=== PATIENT | male | born 1985 | race Two or more races ===

== ENCOUNTER 2025-10-22 18:27 | Emergency (ER) | payer BC, OTHER ==
[~2025-10-22] VITALS: Ht 185.4 cm; Wt 169.3 kg
[2025-10-22] MEDS: diphenhydrAMINE HCL 50 MG/1 ML VL IM ONE (19:05)
[2025-10-22] MEDS: methylPREDNISolone SOD SUCC 125 MG/2 ML VL IM ONE (19:06)
[2025-10-22] MEDS ORDERED: PRED20TA2 PO (19:12)
[2025-10-22] MEDS ORDERED: AMOX875T4 PO (19:12)
[2025-10-22] MEDS ORDERED: DIPH25CA66 PO (19:12)
--- NOTE | 2025-10-22 19:12 | ED.PDOC ---
HPI Allergic reaction HPI Comments 40 year old male presents to ER with complaints of allergic reaction x 1 day. Patient states he started experiencing swelling to tongue, throat irritation and numbness/tingling to lips at 8 a.m. this morning. Notes he's unsure of the exact trigger of his symptoms but notes he did take his Lisinopril that he's been on x 1 year this morning at 4:45 a.m. Denies any pain and denies use of medications for current symptoms. Patient presents to ER ambulatory on arrival, alert and oriented x4, with steady gait, speaking in clear and complete sentences in no distress, with pulse ox 99% on RA and no tongue swelling/skin changes appreciated. Patient also endorses sinus congestion and yellow drainage from bilateral nasal flares x 4 days. Denies shortness of breath, chest pain, n/v, known allergies, diet changes or any further symptoms/complaints Chief Complaint: Allergic Reaction Time Seen by MD: 18:30 Primary Care Provider: UNKNOWN Reviewed Notes: Nurses Notes, Medications, Allergies Allergies: Coded Allergies: NO KNOWN ALLERGIES (Unverified , 10/22/25) Home Meds Active Scripts Amoxicillin & Pot Clavulanate (Amoxicillin/Potassium Cla) 875 Mg Tab, 1 TAB PO BID for 7 Days, #14 TAB 0 Refills Prov:MAREK SCOTT 10/22/25 Diphenhydramine Hcl (Benadryl Allergy) 25 Mg Cap, 2 CAP PO Q4HPRN PRN, #30 CAP 0 Refills Prov:MAREK SCOTT 10/22/25 Prednisone (Prednisone) 20 Mg Tab, 2 TAB PO BID for 5 Days, #20 TAB 0 Refills Prov:MAREK SCOTT 10/22/25 Information Source: Patient Mode of Arrival: Ambulatory Past Medical History PAST MEDICAL HISTORY: HTN, Thyroid (Hypothyroid) Surgical History: Denies all surgeries Family History Family History: Unknown Social History Smoker: Non-Smoker Alcohol: Denies ETOH Use Drugs: Denies Drug Use Lives In: Home Constitutional: denies: chills, diaphoresis, fatigue, fever, malaise, sweats, weakness, others EENTM: reports: others (As stated in HPI) Respiratory: denies: cough, hemoptysis, orthopnea, SOB at rest, shortness of breath, SOB with excertion, stridor, wheezing, others Cardiovascular: denies: chest pain, dizzy spells, diaphoresis, Dyspnea on exertion, edema, irregular heart beat, left arm pain, lightheadedness, palpitations, PND, syncope, others Gastrointestinal: denies: abdomen distended, abdominal pain, blood streaked bowels, constipated, diarrhea, dysphagia, difficulty swallowing, hematemesis, melena, nausea, poor appetite, poor fluid intake, rectal bleeding, rectal pain, vomiting, others Genitourinary: denies: burning, dysuria, flank pain, frequency, hematuria, incontinence, penile discharge, penile sore, pain, testicle pain, testicle swelling, urgency, others Neurological: denies: dizziness, fainting, headache, left sided numbness, left sided weakness, numbness, paresthesia, pre-existing deficit, right sided numbne ss, right sided weakness, seizure, speech problems, tingling, tremors, weakness, others Musculoskeletal: denies: back pain, gout, joint pain, joint swelling, muscle pain, muscle stiffness, neck pain, others Integumetry: reports: others (As stated in HPI) Allergic/Immunocompromised: reports: others (As stated in HPI) Hematologic/Lymphatic: denies: anemia, blood clots, easy bleeding, easy bruising, swollen glands, others Endocrine: denies: excessive hunger, excessive sweating, excessive thirst, excessive urination, flushing, intolerance to cold, intolerance to heat, unexplained weight gain, unexplained weight loss, others Psychiatric: denies: anxiety, bipolar disorder, depression, hopeless, panic disorder, schizophrenia, sleepless, suicidal, others Physical Exam General Appearance: No Apparent Distress, Obese HEENT: Normal ENT Inspection, PERRL/EOMI, Pharynx Normal, TMs Normal Neck: Full Range of Motion, Non-Tender, Normal Respiratory: Chest Non-Tender, Lungs Clear, No Accessory Muscle Use, No Respiratory Distress, Normal Breath Sounds Cardiovascular: No Murmur, No Gallop, Regular Rate/Rhythm Breast Exam: Deferred Gastrointestinal: NOT DONE Genitalia: Deferred Pelvic: Deferred Rectal: Deferred Extremities: Normal capillary refill, Normal range of motion Neurologic: Alert, community services manager II-XII nml as Tested, No Motor Deficits, Normal Affect, Normal Mood, No Sensory Deficits Cerebellar Function: Normal Reflexes: Normal Skin: Dry, Normal Color, Warm Peripheral Pulses: 2+ Radial (R), 2+ Radial (L), 2+ Brachial (R), 2+ Brachial (L) Lymphatic: No Adenopathy Was a procedure done? Was a procedure done?: No Sedation Sedation?: No Differential diagnosis (all) Differential Diagnosis: Anaphylaxis, Angioedema, Bronchospasm, Hypotension X-Ray, Labs, Meds, VS Vital Signs Date Time Temp Pulse Resp B/P (MAP) Pulse Ox O2 Delivery O2 Flow Rate FiO2 10/22/25 18:29 98.1 78 18 153/86 99 98.1 Current Medications Medications (Trade) Dose Ordered Sig/Lucero Route Start Time Stop Time Status Last Admin Methylprednisolone Sodium Succinate (Solu Medrol) 125 mg ONCE ONCE IM 10/22/25 18:45 10/22/25 18:46 DC 10/22/25 19:06 Diphenhydramine HCl (Benadryl Injection) 25 mg ONCE ONCE IM 10/22/25 18:45 10/22/25 18:46 DC 10/22/25 19:05 Solu-Medrol 125 mg IM ordered Benadryl 25 mg IM ordered Patient had improvement in symptoms, tolerating p.o. intake well and in no distress during ER visit/prior to discharge Advised to discontinue Lisinopril until following up with PCP as soon as possible for further evaluation Advised to f/u with PCP in 1-2 days Patient verbalized understanding and agreeable with current plan of care Advised to return to ER immediately if symptoms worsen Time of 1ST Reevaluation: 18:54 Reevaluation 1ST: N/A Patient Education/Counseling: Diagnosis, Treatment, Prognosis, Need For Follow Up Family Education/Counseling: No Family Present SEPSIS Sepsis Screen Date sepsis recognized/suspect: Oct 22, 2025 Time Sepsis recognized/suspect: 1832 Recent Procedure: No On Antibiotic Therapy: No Respiratory Rate >20: No Heart Rate >90: No Temp<36 C (96.8 F) or >38.3 C: No SBP <90 or MAP <65 mmHG: No New Acute Mental Status Change: No Is the patient on CPAP, BIPAP,: No Vital Signs Date Time Temp Pulse Resp B/P (MAP) Pulse Ox O2 Delivery O2 Flow Rate FiO2 10/22/25 18:29 98.1 78 18 153/86 99 98.1 Medications Medications Dose Ordered Sig/Lucero Route Start Time Stop Time Status Last Admin Dose Admin Diphenhydramine HCl 25 mg ONCE ONCE IM 10/22/25 18:45 10/22/25 18:46 DC 10/22/25 19:05 Methylprednisolone Sodium Succinate 125 mg ONCE ONCE IM 10/22/25 18:45 10/22/25 18:46 DC 10/22/25 19:06 Departure 1 Departure Time of Disposition: 19:09 Impression: Primary Impression: Allergic reaction Qualified Codes: T78.40XA - Allergy, unspecified, initial encounter Additional Impression: Sinusitis, acute Qualified Codes: J01.91 - Acute recurrent sinusitis, unspecified Disposition: 01 HOME / SELF CARE / HOMELESS Condition: Stable e-Prescriptions Amoxicillin & Pot Clavulanate (Amoxicillin/Potassium Cla) 875 Mg Tab 1 TAB PO BID for 7 Days, #14 TAB 0 Refills Prov: MAREK SCOTT 10/22/25 Diphenhydramine Hcl (Benadryl Allergy) 25 Mg Cap 2 CAP PO Q4HPRN PRN, #30 CAP 0 Refills Prov: MAREK SCOTT 10/22/25 Prednisone (Prednisone) 20 Mg Tab 2 TAB PO BID for 5 Days, #20 TAB 0 Refills Prov: MAREK SCOTT 10/22/25 Discharged With: Self Critical Care Note Critical Care Time?: No Stability Stability form required: No Heart Score Heart Score: Heart Score Response (Comments) Value History N/A 0 EKG N/A 0 Age N/A 0 Risk Factors N/A 0 Troponin N/A 0 Total 0 MAREK SCOTT Oct 22, 2025 19:12
[2025-10-22 19:27] VITALS: BP 153/86; PULSE 78; RESP 18; TEMP 98.1; O2SAT 99
== END 2025-10-22 19:58 | disposition home or self-care (01) ==
LOC: ER 18:27
DX: T78.40XA Allergy, unspecified, initial encounter (principal); J32.9 Chronic sinusitis, unspecified; I10 Essential (primary) hypertension; Z79.899 Other long term (current) drug therapy; Z79.52 Long term (current) use of systemic steroids; X58.XXXA Exposure to other specified factors, initial encounter
CPT/HCPCS: 96372; 99284; J1200; J2919